=== PATIENT | female | born 1955 | race Caucasian/White ===

== ENCOUNTER 2020-06-26 10:05 | Outpatient (REF) | payer MEDICARE, SELFPAY ==
[2020-07-01 07:42] LABS: HPV mRNA E6/E7 rflx Not Detected (Not Detected)
== END 2020-06-26 10:06 | disposition home or self-care (01) ==
LOC: HO.LAB 10:05
PROVIDERS: PCP Internal Medicine; Referring Provider Internal Medicine; Visit Provider Obstetrics & Gynecology
DX: Z01.419 Encounter for gynecological examination (general) (routine) without abnormal findings (principal); Z12.31 Encounter for screening mammogram for malignant neoplasm of breast; N95.1 Menopausal and female climacteric states; Z90.710 Acquired absence of both cervix and uterus
CPT/HCPCS: 87624; 87625; 88142

== ENCOUNTER → 2020-10-16 08:10 | Outpatient (BNVA) | payer OTHER, SELFPAY | PROVIDERS: PCP Internal Medicine; Visit Provider Physician Assistant | CPT/HCPCS: Q3014 ==

== ENCOUNTER 2021-02-21 09:45 | Outpatient (REF) | payer OTHER, SELFPAY ==
--- NOTE | ~2021-02-21 | XR_ITS ---
EXAMINATION: XR SACROILIAC JOINTS CLINICAL INFORMATION: Sacroiliitis. COMPARISON: None. TECHNIQUE: 3 views of the sacroiliac joints FINDINGS: No significant sacroiliac joint space narrowing. No subchondral sclerosis. No lytic or blastic osseous lesion. No significant marginal osteophytes. Surgical clips within the left pelvis. Tiny phleboliths. Partially visualized stabilization hardware within the lower lumbar spine. XR/XR sacroiliac joint 1-2V IMPRESSION: Unremarkable sacroiliac joints.
== END 2021-02-21 09:46 | disposition home or self-care (01) ==
LOC: HO.HMGCX 09:45
PROVIDERS: PCP Internal Medicine; Visit Provider Internal Medicine
DX: M46.1 Sacroiliitis, not elsewhere classified (principal)
CPT/HCPCS: 72200

== ENCOUNTER 2021-04-18 12:29 | Outpatient (REF) | payer OTHER, SELFPAY ==
[2021-04-18 13:48] LABS: MANUAL DIFF FLAG NO
[2021-04-18 13:52] LABS: Basophils Absolute Auto 0.1 X10*3/uL (0.0-0.2); Basophils Percent Auto 0.8 % (0-2); Eosinophils Absolute Auto 0.2 X10*3/uL (0.0-0.4); Eosinophils Percent Auto 2.1 % (0-4); Hematocrit 38.6 % (37-47); Hemoglobin 13.2 g/dl (12.0-16.0); Imm Gran Abs Auto 0.04 X10*3/uL (0.00-0.03); Imm Gran Pct Auto 0.4 % (0.0-0.4); Lymphocytes Absolute Auto 2.7 X10*3/uL (1.2-4.9); Lymphocytes Percent Auto 29.2 % (20-40); Mean Corpuscular HGB Conc 34.2 g/dl (31.0-35.0); Mean Corpuscular Hemoglobin 31.3 pg (27.0-33.0); Mean Corpuscular Volume 91.5 fL (80-98); Mean Platelet Volume 11.4 fL (9.4-12.3); Monocytes Absolute Auto 0.8 X10*3/uL (0.1-1.2); Neutrophils Absolute Auto 5.4 X10*3/uL (2.0-8.3); Neutrophils Percent Auto 58.5 % (45-73); Platelet Count 253 X10*3/uL (160-400); Red Blood Count 4.22 X10*6/uL (4.20-5.50); Red Cell Distribution Width 11.9 % (11.0-16.0); White Blood Count 9.1 X10*3/uL (4.8-10.8)
[2021-04-18 14:28] LABS: Alanine Aminotransferase 12 U/L (0-31); Albumin Level 4.2 g/dL (3.5-5.0); Alkaline Phosphatase 97 U/L (39-117); Anion Gap 15 (12-20); Aspartate Amino Transferase 19 U/L (5-31); Bilirubin Total 0.3 mg/dL (0.0-1.0); Blood Urea Nitrogen 16 mg/dL (9-16); Calcium 9.8 mg/dL (8.4-10.2); Carbon Dioxide 24 mmol/L (22-29); Chloride 102 mmol/L (96-108); Estimated Glomerular Filt Rate > 60; Glucose Random 79 mg/dL (60-115); Potassium 4.8 mmol/L (3.3-5.1); Sodium 136 mmol/L (135-145); Total Protein 6.6 g/dL (6.5-8.0)
== END 2021-04-18 12:30 | disposition home or self-care (01) ==
LOC: HO.HMGCLDS 12:29
PROVIDERS: PCP Internal Medicine; Visit Provider Internal Medicine
DX: F33.9 Major depressive disorder, recurrent, unspecified (principal); G25.81 Restless legs syndrome; M19.90 Unspecified osteoarthritis, unspecified site; M96.1 Postlaminectomy syndrome, not elsewhere classified
CPT/HCPCS: 36415; 80053; 85025

== ENCOUNTER 2021-08-17 16:09 | Outpatient (REF) | payer OTHER, SELFPAY ==
--- NOTE | ~2021-08-17 | XR_ITS ---
EXAMINATION: XR ANKLE, LEFT CLINICAL INFORMATION: Trauma COMPARISON: None TECHNIQUE: AP, lateral, and mortise views of the left ankle. FINDINGS: No acute fracture or dislocation. XR/XR ankle LT min 3V IMPRESSION: No acute fracture or dislocation left ankle.
== END 2021-08-17 16:10 | disposition home or self-care (01) ==
LOC: HO.HMGCX 16:09
PROVIDERS: PCP Internal Medicine; Visit Provider Internal Medicine
DX: S99.912D Unspecified injury of left ankle, subsequent encounter (principal); Z91.81 History of falling
CPT/HCPCS: 73610

== ENCOUNTER 2022-02-08 10:00 | Outpatient (RCR) | payer OTHER, SELFPAY ==
--- NOTE | 2021-12-31 14:34 | MHC.PT.EP ---
[facility] [place] Office [place] Office [place] Office [address] Nydia Koroma [address] [phone] F: [phone] F: [phone] F: [phone] F: [phone] Physical Therapy Plan of Care Date of Evaluation: Date of Surgery: Diagnosis: pain in R arm. Assessment: Patient is a 66 year old R handed female who presents with s/s consistent with R shoulder pain. She notes insidious onset, no traumatic injury. She has had multiple location pain, surgery over the last few years. She no longer works and has been much less active as of late. Patient past medical history includes R rotator cuff surgery, back surgery, carpal tunnel surgery, and nerve damage. Current impairments include pain, posture, ROM, strength, activity tolerance and functional mobility. Functional limitations include decreased ability to reach, lift, carry, push, pull, dress and drive. Patient is motivated with good rehab potential. Skilled PT will address impairments and functional limitations in order to achieve goals. Frequency and Duration: The patient will be seen 2x/week for 5 weeks Short Term Goals: I with HEP - 2 weeks flexion and abd 140 pain free - 3 weeks eliminate R UT compensation with active flexion - 3 weeks [facility] Goals: Strength 4/5 grossly R shoulder - 5 weeks SPADI 50/130 - 5 weeks (-) impingement cluster - 5 weeks Treatment Plan: Modalities to reduce pain, spasms and effusion. Manual therapy to restore motion and function. Therapeutic exercise to improve strength and flexibility. Neuromuscular re-education for posture and balance. Therapeutic activities to return to functional activities of daily living. Electronically signed by: Nwe Guerrero, PT Please sign and return to therapist. Thank you for your referral.
--- NOTE | 2022-05-02 10:57 | MHC.PT.DC ---
[facility] [place] Office [place] Office [place] [facility] [address] Nydia Koroma [address] [phone] F: [phone] F: [phone] F: [phone] F: [phone] Physical Therapy Discharge Report Diagnosis: pain in R arm. Date of Surgery: Date of Evaluation: 12/31/21 Date of Discharge: 03/18/22 Treatments to Date: 10 Cancellations to Date: No Shows to Date: Discharge Status: Improved Function Independent with HEP Discharge Summary: 02/08/22: SPADI 85/130. AAROM improved. Flexion AAROM is 145 and abd is 138. She is I with HEP. Still does still have impingement cluster (+) and TTP in bicep and lateral delt. However, She would like to continue exclusively with HEP at this time so we will d/c to HEP. 02/04/22: we held on strength progression today due to some lack of energy and strength. added some cervical intervention manually today to assess for cervical involvement. s/s reduced after interventions. Electronically signed by: New Guerrero PT Please sign and return to therapist. Thank you for your referral.
== END 2022-05-02 10:57 | disposition home or self-care (01) ==
LOC: HO.PTCHIC 10:00
PROVIDERS: PCP Internal Medicine; Visit Provider Internal Medicine
DX: M79.601 Pain in right arm (principal)
CPT/HCPCS: 97110; 97140; 97162

== ENCOUNTER 2022-04-24 06:28 | Outpatient (REF) | payer OTHER, SELFPAY ==
[2022-04-24 11:23] LABS: MANUAL DIFF FLAG NO
[2022-04-24 11:26] LABS: Basophils Absolute Auto 0.1 X10*3/uL (0.0-0.2); Basophils Percent Auto 0.7 % (0-2); Eosinophils Absolute Auto 0.2 X10*3/uL (0.0-0.4); Eosinophils Percent Auto 2.1 % (0-4); Hematocrit 42.5 % (37.0-47.0); Hemoglobin 14.1 g/dl (12.0-16.0); Imm Gran Abs Auto 0.01 X10*3/uL (0.00-0.03); Imm Gran Pct Auto 0.1 % (0.0-0.4); Lymphocytes Absolute Auto 2.3 X10*3/uL (1.2-4.9); Lymphocytes Percent Auto 29.9 % (20-40); Mean Corpuscular HGB Conc 33.2 g/dl (31.0-35.0); Mean Corpuscular Hemoglobin 30.9 pg (27.0-33.0); Mean Corpuscular Volume 93.2 fL (80.0-98.0); Mean Platelet Volume 11.1 fL (9.4-12.3); Monocytes Absolute Auto 0.6 X10*3/uL (0.1-1.2); Monocytes Percent Auto 7.8 % (2-11); Neutrophils Absolute Auto 4.5 x10*3/uL (2.0-8.3); Neutrophils Percent Auto 59.4 % (45-73); Platelet Count 236 X10*3/uL (160-400); Red Blood Count 4.56 X10*6/uL (4.20-5.50); Red Cell Distribution Width 12.5 % (11.0-16.0); White Blood Count 7.6 X10*3/uL (4.8-10.8)
[2022-04-24 12:04] LABS: Alanine Aminotransferase 17 U/L (0-31); Albumin Level 4.2 g/dL (3.5-5.0); Alkaline Phosphatase 102 U/L (39-117); Anion Gap 14 (12-20); Aspartate Amino Transferase 19 U/L (5-31); Bilirubin Total 0.4 mg/dL (0.0-1.0); Blood Urea Nitrogen 18 mg/dL (9-16); Calcium 9.2 mg/dL (8.4-10.2); Carbon Dioxide 26 mmol/L (22-29); Chloride 105 mmol/L (96-108); Cholesterol 206 mg/dL; Estimated Glomerular Filt Rate > 60; Glucose Fasting 75 mg/dL (60-99); HDL Cholesterol 56 mg/dL; LDL Cholesterol Calculated 131 mg/dl; Magnesium 1.9 mg/dL (1.6-2.6); Potassium 4.1 mmol/L (3.3-5.1); Sodium 141 mmol/L (135-145); Total Protein 6.8 g/dL (6.5-8.0); Triglycerides 97 mg/dL
[2022-04-24 12:08] LABS: Vitamin B12 785 pg/mL (200-900)
[2022-04-24 12:25] LABS: TSH reflex Free T4 0.88 uIU/mL (0.32-4.0)
[2022-04-29 16:12] LABS: Vitamin D 25-OH, D2 <4 ng/mL; Vitamin D 25-OH, D3 37 ng/mL; Vitamin D 25-OH, Total 37 ng/mL (30-100)
== END 2022-04-24 06:29 | disposition home or self-care (01) ==
LOC: HO.HMGCLDS 06:28
PROVIDERS: PCP Internal Medicine; Visit Provider Internal Medicine
DX: F33.9 Major depressive disorder, recurrent, unspecified (principal); G25.81 Restless legs syndrome; M19.90 Unspecified osteoarthritis, unspecified site; M79.601 Pain in right arm; M96.1 Postlaminectomy syndrome, not elsewhere classified
CPT/HCPCS: 36415; 80053; 80061; 82306; 82607; 83735; 84443; 85025

== ENCOUNTER 2022-11-22 12:58 | Outpatient (REF) | payer OTHER, SELFPAY ==
--- NOTE | ~2022-11-22 | MM_ITS ---
EXAMINATION: MM SCREENING DIGITAL BREAST TOMOSYNTHESIS, BILATERAL CLINICAL INFORMATION: Screening. Asymptomatic. The lifetime risk of breast cancer based on the Tyrer-Cuzick Model is 9.7%. COMPARISON: Mammography: January 31, 2022 and studies dating back to December 20, 2016 TECHNIQUE: Digital breast tomosynthesis is performed in both the craniocaudal and mediolateral oblique views along with computer-aided detection (CAD). Synthesized 2D images are generated from the tomosynthesis. FINDINGS: There are scattered areas of fibroglandular density (ACR BI-RADS breast composition Category b). There are no significant masses, abnormal calcifications, or other abnormalities. MM/MM tomosynthesis screening BI IMPRESSION: No significant changes ASSESSMENT: BI-RADS 1: Negative RECOMMENDATION: Routine annual mammography screening. This patient's information was entered into a reminder system with a target due date for their next mammogram.
== END 2022-11-22 12:59 | disposition home or self-care (01) ==
LOC: HO.MAMMO 12:58
PROVIDERS: PCP Physician Assistant Medical; Visit Provider Physician Assistant Medical
DX: Z12.31 Encounter for screening mammogram for malignant neoplasm of breast (principal)
CPT/HCPCS: 77063; 77067

== ENCOUNTER 2023-11-28 12:33 | Outpatient (REF) | payer OTHER, SELFPAY ==
--- NOTE | ~2023-11-28 | MM_ITS ---
EXAMINATION: MM SCREENING DIGITAL BREAST TOMOSYNTHESIS, BILATERAL CLINICAL INFORMATION: Screening. Asymptomatic. 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 This occurred in 2020. COMPARISON: Mammography: This study is compared with prior exams dating back to 2018. TECHNIQUE: Digital breast tomosynthesis is performed in both the craniocaudal and mediolateral oblique views along with computer-aided detection (CAD). Synthesized 2D images are generated from the tomosynthesis. FINDINGS: There are scattered areas of fibroglandular density (ACR BI-RADS breast composition Category b). There are no significant masses, abnormal calcifications, or other abnormalities. MM/MM tomosynthesis screening BI IMPRESSION: No mammographic evidence of malignancy. ASSESSMENT: BI-RADS BI-RADS 1 - Negative RECOMMENDATION: Routine annual mammography screening. 1 year F/U This examination should not preclude the clinical evaluation of a suspicious palpable abnormality. This patient's information was entered into a reminder system with a target due date for their next mammogram.
== END 2023-11-28 12:34 | disposition home or self-care (01) ==
LOC: HO.MAMMO 12:33
PROVIDERS: PCP Physician Assistant Medical; Visit Provider Physician Assistant Medical
DX: Z12.31 Encounter for screening mammogram for malignant neoplasm of breast (principal)
CPT/HCPCS: 77063; 77067

== ENCOUNTER → 2023-11-28 13:00 | Outpatient (BNV) | payer OTHER, SELFPAY | PROVIDERS: PCP Physician Assistant Medical; Visit Provider Radiology Diagnostic Radiology | DX: Z12.31 Encounter for screening mammogram for malignant neoplasm of breast (principal) | CPT/HCPCS: 77063; 77067 ==

== ENCOUNTER 2024-12-07 10:53 | Outpatient (REF) | payer OTHER, SELFPAY ==
--- OUTSIDE RECORDS SUMMARY | 2024-12-07 12:39 | XMS_ITS | Clinical Summary ---
Author Organization [facility] Address [address] [place] [address] Care Team Providers Care Special Events Planner Name Role Phone Adina Lake MD Primary Care Provider [phone] Social History Tobacco Use Types Packs/Day Years Used Date Smoking Tobacco: Never Assessed Sex and Gender Information Value Date Recorded Sex Assigned at Not on file Gender Identity Not on file Sexual Orientation Not on file Plan of Treatment Health Maintenance Due Date Last Done Comments Hepatitis C Screening 1955 COVID-19 Vaccine (#1) [birth year]03[birth year]1956 Depression Screening 1967 Preventative Health Evaluation 1973 DTap / Tdap / Td (1 - Tdap) 1974 Colon Cancer Screening (Colonoscopy) 2000 Breast Cancer Screening (Mammogram) 2005 Shingrix-Zoster Vaccine (1 of 2) 2005 Fall Risk Assessment 2020 Osteoporosis Screening (DEXA Scan) 2020 Pneumococcal Vaccine (1 of 1 - PCV) 2020 Influenza Vaccine (#1) 2024 RSV Adult > 60+ Yrs or Pregn ant (1 - 1-dose 75+ series) 2030 Hepatitis B Vaccines Aged Out No long er eligible based on patient's age to complete this topic RSV Ped < 20 months Aged Out No longe r eligible based on patient's age to complete this topic Care Teams Special Events Planner Relationship Specialty Start Date End Date Adina Lake MD [address] [place] [address] PCP - General Internal Medicine 07/05/20
--- OUTSIDE RECORDS SUMMARY | 2024-12-07 12:39 | XMS_ITS | Patient Health Record ---
Author Organization [facility] Address [address] [place] [address] Care Team Providers Care Wastewater Project Manager Name Role Phone Isidoro Cameronley Primary Care Provider Unavail Odessa Mullen Unavailable [phone] Allergies No Known Allergies Reason For Referral No Information Medications Medication SIG (Take, Route, Frequency, Duration) Notes Start Date End Date Status B Complex Active Vitamin B6 Active Citalopram Hydrobromide 40mg Active traMADol HCl Not-Sai ing Magnesium Active Vitamin C Active Vitamin D Not-Taking rOPINIRole HCl 3mg Activ e Calcium + D3 Active Social History Tobacco Use: Social History Observation Description Date Details (start date - stop date) Current Smoker NA - NA Tobacco Use/Smoking Question Answer Notes Are you a: current smoker Alcohol Screen Question Answer Notes Did you have a drink contain ing alcohol in the past year? Yes How often did you have a dri nk containing alcohol in the past year? 2 to 4 times a month (2 points) Points 2 Interpretation Negative Tobacco use other than smoking: Question Answer Notes Are you an other tobacco user? No Plan Of Treatment Pending Test Test Name Order Date X ray : Foot, left 3V 07/18/2022 X ray : Foot, left 3V 05/21/2023 X ray : Foot, right 3V 05/21/2023 [id number] Plate 10/09/2021 [id number]- Debride <25 sq cm 10/30/2021 Insurance Providers Payer Name Payer Address Payer Phone Subscriber Number Group Number Insured Name Patient Relationship to Insured Coverage Start Date Coverage End Date [facility] [employer] Claims [address] [place] [phone] [id number] Christine Ivey Self - patient is the insured Medical (General) History Medical History History ICD Code Arthritis Back,Hip,and Knee pain Cancer Joint implants/screws Surgical History Surgery Date(Month/Year) Breast Surgery 04/2021 Hospitalization History Reason Date(Month/Year) ER- stomach 02/2023
== END 2024-12-07 10:54 | disposition home or self-care (01) ==
LOC: HO.MAMMO 10:53
PROVIDERS: PCP Physician Assistant Medical; Visit Provider Physician Assistant Medical
DX: Z12.31 Encounter for screening mammogram for malignant neoplasm of breast (principal)
CPT/HCPCS: 77063; 77067

== ENCOUNTER → 2024-12-07 11:15 | Outpatient (BNV) | payer OTHER, SELFPAY | PROVIDERS: PCP Physician Assistant Medical; Visit Provider Internal Medicine | DX: Z12.31 Encounter for screening mammogram for malignant neoplasm of breast (principal) | CPT/HCPCS: 77063; 77067 ==

== ENCOUNTER 2025-01-13 11:59 | Outpatient (REF) | payer OTHER, SELFPAY ==
--- NOTE | ~2025-01-13 | US_ITS ---
EXAMINATION: MM DIAGNOSTIC DIGITAL BREAST TOMOSYNTHESIS, LEFT Limited left breast ultrasound. CLINICAL INFORMATION: Call back from screening for oval mass in the lower outer left breast posterior depth. COMPARISON: Mammography: Priors on PACS. TECHNIQUE: Digital breast tomosynthesis is performed in both the craniocaudal and mediolateral oblique views along with computer-aided detection (CAD). Synthesized 2D images are generated from the tomosynthesis. FINDINGS: There are scattered areas of fibroglandular density (ACR BI-RADS breast composition Category b). Circumscribed oval mass in the lower outer left breast posterior depth persists and significantly changed from prior mammograms dating back to 2022. There are no significant masses, abnormal calcifications, or other abnormalities. Targeted color Doppler ultrasound scanning in the left breast 4:00 8 cm from the nipple demonstrates a minimally complicated cysts measuring 7 x 4 x 6 mm which correlates with the oval mass on mammography and is benign. US/US breast LT limited mamm only IMPRESSION: Minimally complicated cyst on ultrasound not significant change from prior mammograms dating back to 2022. Benign. ASSESSMENT: BI-RADS BI-RADS 2 - Benign Findings RECOMMENDATION: 1 year F/U Results were provided to the patient at time of visit by the technologist. This patient's information was entered into a reminder system with a target due date for their next mammogram. Electronically signed by: Jeana Bacon DO 01/13/2025 01:23 PM EDT
--- OUTSIDE RECORDS SUMMARY | 2025-01-13 14:09 | XMS_ITS | Patient Health Record ---
Author Organization [facility] Address [address] [place] [address] Care Team Providers Care Cheese Processor Name Role Phone Tami Cameron Primary Care Provider Unavail Odessa Mullen Unavailable [phone] Allergies No Known Allergies Reason For Referral [...] X ray : Foot, right 3V 05/21/2023 [id number] Plate 10/09/2021 23426- Debride <25 sq cm 10/30/2021 Insurance Providers Payer Name Payer Address Payer Phone Subscriber Number Group Number Insured Name Patient Relationship to Insured Coverage Start Date Coverage End Date [facility] S[employer] Claims [address] [place] [phone] [id number] Christine Ivey Self - patient is the insured Medical (General) History Medical History History ICD Code Arthritis Back,Hip,and Knee pain Cancer Joint implants/screws Surgical History Surgery Date(Month/Year) Breast Surgery 04/2021 Hospitalization History Reason Date(Month/Year) ER- stomach 02/2023
== END 2025-01-13 12:00 | disposition home or self-care (01) ==
LOC: HO.MAMMO 11:59
PROVIDERS: PCP Physician Assistant Medical; Visit Provider Physician Assistant
DX: N63.23 Unspecified lump in the left breast, lower outer quadrant (principal)
CPT/HCPCS: 76642; 77061; 77065

== ENCOUNTER → 2025-01-13 12:30 | Outpatient (BNV) | payer OTHER, SELFPAY | PROVIDERS: PCP Physician Assistant Medical; Visit Provider Internal Medicine | DX: N60.02 Solitary cyst of left breast (principal) | CPT/HCPCS: 76642; 77065; G0279 ==